=== PATIENT | male | born 1975 | race Caucasian/White ===

== ENCOUNTER → 2019-05-21 | Outpatient (CLI) | payer OTHER ==
[~2019-05-21] VITALS: Ht 165 cm; Wt 74.0 kg
[~2019-05-21] MED LIST: CATHETER FLUSH 10 ML SYR IV PRN
--- NOTE | 2019-05-21 10:51 | STRESS TEST ---
DATE OF SERVICE: 05/21/2019 NUCLEAR MYOVIEW STRESS TEST REFERRING PHYSICIAN: Dr. Myers. In summary, the patient was injected with 10.17 mCi of technetium-99 Myoview and the resting images were acquired. Then, the patient received a stress dose of 31.4 mCi of technetium-99 Myoview and the stress images were acquired. The images were reviewed and compared, there is diaphragmatic attenuation affecting the quality of the images, mild decreased uptake involving the mid to apical anterolateral and inferolateral wall with mild reversibility. SSS is 4, SDS 3, TID value 0.93. On the gated images, the left ventricle appeared to be normal size with normal contractility. Calculated ejection fraction is 62%. CONCLUSION: 1. Diaphragmatic attenuation with mild decreased uptake involving the mid to apical anterolateral and inferolateral wall. 2. Normal left ventricular size with normal contractility. Calculated ejection fraction is 62%. Job ID: [id number] DocumentID: [id number] Dictated Date: 05/21/2019 09:51:04 Oil Agent Date: 05/21/2019 10:51:06 Dictated By: NOAH CHANEY MD
== END ==
LOC: CARD 06:36
PROVIDERS: ATTEND Internal Medicine
DX: R00.2 Palpitations (principal)
CPT/HCPCS: 78452; 93017